=== PATIENT | male | born 1940 | race Caucasian/White ===

== ENCOUNTER → 2019-07-25 | Outpatient (CLI) | payer MEDICARE | END | disposition home or self-care (01) | LOC: RAH 09:29 | PROVIDERS: ATTEND Internal Medicine Cardiovascular Disease | DX: I51.7 Cardiomegaly (principal); R00.1 Bradycardia, unspecified; I10 Essential (primary) hypertension; R55 Syncope and collapse | CPT/HCPCS: 93306 ==

== ENCOUNTER 2019-07-31 17:00 | Observation (INO) | payer MEDICARE ==
[~2019-07-31] VITALS: Ht 177.8 cm; Wt 77.1 kg
[2019-08-04 10:49] LABS: BASOPHILS % (AUTO) 0.4 % (0.0-5.0); EOSINOPHILS % (AUTO) 3.5 % (0.0-8.0); HEMATOCRIT 40.2 % (42-54); LYMPHOCYTES % (AUTO) 30.8 % (21.0-51.0); MEAN CORPUSCULAR HEMOGLOBIN 28.9 pg (27.0-33.0); MEAN CORPUSCULAR HGB CONC 33.3 g/dL (32.0-36.0); MEAN CORPUSCULAR VOLUME 86.8 fL (79-99); MONOCYTES % (AUTO) 9.6 % (3.0-13.0); NEUTROPHILS % (AUTO) 55.4 % (40.0-77.0); PLATELET COUNT (AUTO) 284 K/uL (130-400); RED BLOOD CELL COUNT(AUTO) 4.63 MIL/uL (4.50-6.20); RED CELL DISTRIBUTION WIDTH 13.1 % (11.0-15.5); WHITE BLOOD COUNT (AUTO) 6.9 K/uL (4.8-10.8)
[2019-08-04 11:06] LABS: CREATININE 0.9 mg/dL (0.5-1.5); POTASSIUM 4.3 mmol/L (3.5-5.1)
[2019-08-04 11:13] VITALS: BP 169/76
--- NOTE | 2019-08-04 14:45 | NUR ---
BRADYCARDIA NOTED ON CARDIAC CLEARANCE PER CARDIAC CLEARANCE PATIENT IS TO DECREASE THE DOSE OF ATENOLOL TO 50MG, 24 HOURS PRIOR AND DAY OF PROCEDURE. DR BLOOD AWARE. PATIENT INFORMED AND VERBALIZED UNDERSTANDING
[2019-08-04] MEDS ORDERED: HYDR25TA PO (16:11)
[2019-08-04] MEDS ORDERED: ATEN100T PO (16:11)
[2019-08-04] MEDS ORDERED: LEVO50 PO (16:11)
[2019-08-04] MEDS ORDERED: SIMV10TA97 PO (16:11)
[2019-08-07] VITALS (23 sets, daily range): BP systolic 108–155; BP diastolic 59–96
[2019-08-07] MEDS: CEFAZOLIN SODIUM 1 GM VIAL IVP SCH ×4 (06:00→18:30)
[2019-08-07] MEDS ORDERED: LACTATED RINGERS 1000ML 1,000 ML IV ONE (06:23)
--- NOTE | 2019-08-07 06:42 | NUR ---
PAIN pt states no pain at rest ,ambulating pain in lower lumbar area radiated to anterior portion of right lower extremity Addendum: 08/07/19 at 0644 by SUNDAY MACARIO RN RN Amended: Links added.
[2019-08-07] MEDS ORDERED: DEXAMETHASONE SOD PHOSPHATE 10MG/ML 1ML VIAL ONE (06:44)
[2019-08-07] MEDS ORDERED: MIDAZOLAM HCL 1 MG/ML 2ML VIAL ONE (06:44)
[2019-08-07] MEDS ORDERED: PROPOFOL 10 MG/ML 20ML VIAL IV ONE (06:44)
[2019-08-07] MEDS ORDERED: SUCCINYLCHOLINE 200MG/10ML SYR ONE (06:44)
[2019-08-07] MEDS ORDERED: GLYCOPYRROLATE 1 MG/5 ML SYRINGE ONE (06:44)
[2019-08-07] MEDS ORDERED: LIDOCAINE PF 2% 5ML ABBOJECT ONE (06:44)
[2019-08-07] MEDS ORDERED: ROCURONIUM 10MG/1ML SYR 10 MG/ML ML ONE (06:45)
[2019-08-07] MEDS ORDERED: FENTANYL CITRATE PF 50 MCG/1 ML 2ML VIAL ONE ×2 (06:45→11:26)
[2019-08-07] MEDS ORDERED: ONDANSETRON HCL 4 MG/2 ML VIAL ONE (06:45)
[2019-08-07] MEDS ORDERED: NEOSTIGMINE 5MG/5ML SYR IV ONE (06:45)
[2019-08-07] MEDS ORDERED: BUPIVACAINE/EPI/PF 0.25% 30ML VIAL IJ ONE (06:49)
[2019-08-07] MEDS ORDERED: BACITRACIN 50,000 UNIT VIAL ONE (06:50)
[2019-08-07] MEDS ORDERED: THROMBIN-JMI 20000 UNIT KIT TP ONE (06:50)
[2019-08-07] MEDS ORDERED: DURAMORPH PF1 MG/ML 10ML AMP IV ONE (06:50)
[2019-08-07] MEDS ORDERED: ATEN50TA PO ×2 (06:56→06:57)
[2019-08-07] MEDS ORDERED: EPHEDRINE SULFATE 50 MG/ML AMPULE ONE (09:10)
[2019-08-07] MEDS ORDERED: MORPHINE SULFATE 2 MG/ML 1ML SYG IVP PRN (10:30)
[2019-08-07] MEDS ORDERED: ATENOLOL 50 MG TABLET PO SCH ×2 (10:30)
[2019-08-07] MEDS ORDERED: PROMETHAZINE HCL 25 MG/ML 1ML AMPULE IM PRN (10:30)
[2019-08-07] MEDS ORDERED: HYDROCODONE/ACETAMINOPHEN 5/325 MG TAB PO PRN (10:30)
[2019-08-07] MEDS ORDERED: SODIUM CHLORIDE 0.9% 10 ML VIAL IVP PRN (10:30)
[2019-08-07] MEDS: LACTATED RINGERS 1000ML 1,000 ML IV SCH ×2 (14:01→20:48)
[2019-08-07] MEDS: DEXAMETHASONE SOD PHOSPHATE 4 MG/ML 1ML VIAL IVP SCH ×3 (14:02→20:43)
--- NOTE | 2019-08-07 17:07 | NUR ---
1705 had patient sign [employer] Letter,faxed to [phone] and placed in chart under consent tab
--- NOTE | 2019-08-07 17:30 | NUR ---
PATIENT WALKED TWICE IN HALLWAY ACCOMPANIED BY AMADOR SEGAL. PATIENT DENIES ANY PAIN OR DISCOMFORT.
[2019-08-07] MEDS ORDERED: SIMVASTATIN 10 MG TABLET PO SCH (21:00)
--- NOTE | 2019-08-07 21:30 | NUR ---
AMBULATING PT AMBULATED IN HALLWAY ACCOMPANIED BY DIRECTOR PRINT GABRIELLE. NO C/O DIZZINESS, LIGHTHEADEDNESS, OR PAIN AT THIS TIME. STEADY GAIT OBSERVED.
[2019-08-08 00:20] VITALS: BP 128/66
[2019-08-08 04:20] VITALS: BP 147/65
[2019-08-08] MEDS: DEXAMETHASONE SOD PHOSPHATE 4 MG/ML 1ML VIAL IVP SCH ×2 (04:20→11:30)
[2019-08-08 07:46] VITALS: BP 147/80
[2019-08-08 08:03] VITALS: BP 147/80
[2019-08-08] MEDS ORDERED: LEVOTHYROXINE 50 MCG TABLET PO SCH (09:00)
[2019-08-08] MEDS ORDERED: ATENOLOL 50 MG TABLET PO SCH (09:00)
[2019-08-08] MEDS ORDERED: HYDROCHLOROTHIAZIDE 25 MG TABLET PO SCH (09:00)
[2019-08-08 11:19] VITALS: BP 151/64
[2019-08-08 12:06] VITALS: BP 151/64
--- NOTE | 2019-08-08 12:40 | NUR ---
DISCHARGE PATIENT/SPOUSE GIVEN DISCHARGE INSTRUCTIONS VIA TEACH BACK. 20G PIV TO LEFT WRIST DISCONTINUED, TIP INTACT. INSTRUCTIONS GIVEN FOR FOLLOW UP APPOINTMENT, INCISION CARE, ACTIVITY AND SIGNS AND SYMPTOMS TO REPORT TO MD. MAGALI DRAIN REMOVED AND NEW DRESSING WAS APPLIED TO INCISION. NO SIGNS OR SYMPTOMS OF INFECTION NOTED AT THIS TIME. PATIENT STABLE AT THIS TIME, DENIES ANY PAIN OR DISCOMFORT. PATIENT WHEELED TO LOBBY BY AMADOR COPE.
== END 2019-08-08 12:47 | disposition home or self-care (01) ==
LOC: EDSTATUS 17:00 → DAHIP 08-07 05:41 → 4AH 08-07 11:48
PROVIDERS: ADMIT Neurological Surgery; ATTEND Neurological Surgery
DX: M48.061 Spinal stenosis, lumbar region without neurogenic claudication (principal); E03.9 Hypothyroidism, unspecified; I10 Essential (primary) hypertension
CPT/HCPCS: 36415; 63047; 63048 ×2; 72020; 80048; 85025; 96374; 96375; 96376 ×2; A4215; A4221; A4222; A4223; A4344; A4649 ×3; A4663; A6260; G0378 ×21; J0330; J0690 ×2; J1100 ×5; J2001; J2250; J2274; J2405; J2704; J2710; J3010 ×2; J3490 ×3; J7030; J7120 ×3